=== PATIENT | female | born 1955 ===

== ENCOUNTER 2017-01-15 19:16 | Emergency (ER) | payer MEDICARE, OTHER ==
[~2017-01-15] VITALS: Ht 139.7 cm; Wt 64.1 kg
[~2017-01-15 19:16] MED LIST: BUPR300T51; CETI-188; CRESTOR20 M1 PO; GLU500 PO; LIP40; PARO30TA75; SIN10; hctz PO; lisinopril
[2017-01-15 19:21] VITALS: BP 134/84; PULSE 95; RESP 16; O2SAT 97
[2017-01-15 19:54] LABS: EOSINOPHILS % (AUTO) 10.4 % (0-5); MONOCYTES % (AUTO) 5.1 % (4-12); Mean Corpuscular Volume 82.4 fL (81-100); NEUTROPHILS % (AUTO) 51.9 % (40-74); Platelet Count 327 bil/L (150-400)
[2017-01-15 20:11] VITALS: BP 120/79; PULSE 89; RESP 13; O2SAT 96
[2017-01-15] MEDS ORDERED: ROSU20TA27 PO (20:13)
[2017-01-15] MEDS ORDERED: LISI10TA PO (20:13)
[2017-01-15] MEDS ORDERED: HYDR12.55 PO (20:13)
[2017-01-15] MEDS ORDERED: ASPI-973 PO (20:13)
[2017-01-15] MEDS ORDERED: PARO30TA4 PO (20:13)
[2017-01-15] MEDS ORDERED: METF500T4 PO (20:13)
--- NOTE | 2017-01-15 20:13 | DRSVH ---
PROCEDURE: X-RAY CHEST ONE VIEW, PORTABLE ([id number]) INDICATIONS: 61 year-old female with chest pain. TECHNIQUE: One view of the chest was acquired. COMPARISON: [facility], , CHEST 2 VIEW, 06/17/2013, 23:50. Formerly [facility], CR, CHEST 2VW, 06/14/2008, 14:12. Formerly [facility], , CHEST 1VW (PORTABLE), 01/21/2008, 12:51. FINDINGS: Surgical changes and devices: Patient is status post cholecystectomy. Lungs and pleura: No pleural effusions or pneumothorax. Lungs are clear. Mediastinum: Mediastinal contours appear normal. Heart size is normal. Bones and chest wall: No suspicious bony lesions. Overlying soft tissues appear unremarkable. IMPRESSION: No acute cardiopulmonary disease. Dictated by: Sánchez Tyson M.D. on 01/15/2017 at 20:06 Approved by: Sánchez Tyson M.D. on 01/15/2017 at 20:06
[2017-01-15 20:31] LABS: TROPONIN T < 0.010 ug/L (0.0-0.011)
--- NOTE | 2017-01-15 21:25 | ED.REPORT ---
HPI-Chest Pain 40 and Over Date of Service January 15, 2017 ED Provider: Mat Zavala MD A 61 year old female with a medical history including diabetes, hypertension, hyperlipidemia, GERD, TIA, and PE on daily ASA presents to the ED reporting intermittent midsternal shooting chest pain onset 1200 this afternoon, while making lunch. The pain radiates to her left shoulder and was preceded by a headache. The patient also reports shortness of breath and diaphoresis. She denies nausea, vomiting, extremity tenderness, extremity swelling, dizziness, or other symptoms. The patient has never had similar symptoms in the past. Nursing Notes Stated Complaint: CHEST PAIN Chief Complaint: Chest Pain Nursing Notes Reviewed: Yes Allergies: Coded Allergies: No Known Allergies (Verified , 05/24/06) Scheduled Aspirin (Aspirin) 81 Mg Tablet 81 MG PO DAILY Hydrochlorothiazide (Hydrochlorothiazide) 12.5 Mg Tablet 12.5 MG PO DAILY Lisinopril (Lisinopril) 10 Mg Tablet 10 MG PO DAILY Metformin (Metformin) 500 Mg Tablet 500 MG PO BID Paroxetine (Paroxetine) 30 Mg Tablet 30 MG PO HS Rosuvastatin Calcium (Rosuvastatin Calcium) 20 Mg Tablet 20 MG PO QPM General Time Seen by MD: 21:12 Chief Complaint Chest pain Hx Obtained From: Patient Arrived By: Walk-in Sudden in Onset?: No Onset Occurred: 9 - 12 hours ago Symptom Duration: Intermittent Location: : Substernal Quality: Painful (Shooting) Radiation: : Shoulder left Severity: Current: Moderate Severity: Maximum: Moderate Pertinent Negative: Relieved by nothing Context Related History: Reports: Diabetes mellitus, GERD, Hypertension, Pulmonary embolism Recent Healthcare: No recent doctor visit Similar Sx Previous: Yes Past Medical History Past Medical History Diabetes Hypertension Asthma GERD PE s/p hip operation Hyperlipidemia TIA Past Surgical History Hip surgeries x2 Cholecystectomy Hysterectomy Family History Mother at the age of 75. She had a CVA. Father had an TN and he at the age of 70. Smoking History Current Every Day Smoker Social History Drug Use: Denies drug use Other Social History: Good social support Ambulatory Status Independent Review of Systems Constitutional: Denies: Fever Respiratory: Reports: Shortness of breath, Denies: Non-productive cough Cardiovascular: Reports: Chest pain GI: Denies: Nausea, Vomiting Musculoskeletal: Reports: Joint pain (Left shoulder), Denies: Extremity pain, Extremity swelling Skin: Reports Diaphoresis Neurologic: Reports: Headache, Denies: Dizziness Complete sys rev & neg: except as marked. Physical Exam Initial Vital Signs Vital Signs (First) Date Time Temp Pulse Resp B/P Pulse Ox O2 Delivery O2 Flow Rate FiO2 01/15/17 19:21 37.3 95 16 134/84 97 Room Air Initial VS: Reviewed, Vital signs normal Head / Eyes: Atraumatic, Normocephalic Skin: Warm, Dry, No cyanosis Neurologic: Alert, Oriented, Nonfocal Psychiatric: Mood/affect normal, Behavior normal, Normal thought content General/Constitutional: Awake, Alert, No acute distress Thin Respiratory / Chest: Breath sounds NL, Breath sounds = bilat, No respiratory distress Cardiovascular: Heart rate NL, Regular rhythm, Heart sounds NL Neck: Supple, Full range of motion, No JVD Lower Extremity / Pelvis / MS: Inspection NL, No edema ENT: Airway patent, Mucous membranes moist Edentulous Interpretation & Diagnostics Lab Results Interpretation Result Diagram: 01/15/17193901/15/171939 Test 01/15/17 19:40 01/15/17 21:40 White Blood Count 8.9th/mm3 (3.8-10.1) Red Blood Count 5.44mil/mm3 (3.90-5.20) Hemoglobin 14.7g/dL (12.0-15.6) Hematocrit 44.8% (35.0-46.0) Mean Corpuscular Volume 82.4fL (81-100) Mean Corpuscular Hemoglobin 27.0pg (27.0-35.0) Mean Corpuscular Hemoglobin Concent 32.8% (32.0-37.0) Red Cell Distribution Width 15.4% (12.3-15.4) Platelet Count 327bil/L (150-400) Neutrophils (%) (Auto) 51.9% (40-74) Lymphocytes (%) (Auto) 31.4% (14-46) Monocytes (%) (Auto) 5.1% (4-12) Eosinophils (%) (Auto) 10.4% (0-5) Basophils (%) (Auto) 1.0% (0-3) D-Dimer 0.72mg/L FEU (<0.50) Sodium Level 138mEq/L (134-144) Potassium Level 4.5mEq/L (3.5-5.2) Chloride Level 100mEq/L (97-108) Carbon Dioxide Level 22mmol/L (18-29) Blood Urea Nitrogen 20mg/dL (8-27) Creatinine 0.80mg/dL (0.57-1.00) Estimat Glomerular Filtration Rate 104mL/min (>59) Glucose Level 109mg/dL (60-99) Calcium Level 9.7mg/dL (8.5-10.1) Magnesium Level 2.0mg/dL (1.6-2.6) Total Bilirubin 0.2mg/dL (0.0-1.2) Aspartate Amino Transf (AST/SGOT) 20U/L (0-50) Alanine Aminotransferase (ALT/SGPT) 17U/L (0-32) Alkaline Phosphatase 90U/L (25-165) Total Protein 7.8g/dL (6.4-8.4) Albumin 4.3g/dL (3.4-5.0) Hold Giang Top Tube Received (Received) Troponin T 0.010ug/L (0.0-0.011) Lab values outside NL range: no clinical significance. Lab Results Interpretation: D-dimer negative, troponin negative 2 ECG Interpretation ECG Interpretation: Sinus rhythm rate 96 Time: 19:28 Interpreted by: ED physician ECG Interpretation: Sinus rhythm rate 91 Low voltage, precordial leads Time: 21:38 Interpreted by: ED physician X-Ray Chest Interpretation Chest Xray Interpretation: IMPRESSION: No acute cardiopulmonary disease. Dictated by: Sánchez Tyson M.D. on 01/15/2017 at 20:06 View: Portable, 1 view Interpretation / Wet Read by: Interpret - Radiologist CT Chest Interpretation CONCLUSION: No evidence of pulmonary embolism or thoracic aortic dissection. Lungs are grossly clear. Report transmitted to the ED at 01/15/2017 - 11:40:06 PM PDT Study type: CT pulm angiogram Interpretation / Wet Read by: Interpret - Radiologist (Javier Granger M.D.) Re-Eval/Medical Decision Med Decision/Clinical Course 61-year-old female with pleuritic chest pain. Chest x-rays normal, EKG is normal 2, d-dimer is negative, and troponin is negative 2. She will be discharged home to follow up with her primary doctor. Doubt serious illness at this time. Time of Eval: 22:32 Patient Status: Condition improved Re-Evaluation/Progress Note: Discussed with patient lab results and plan for CT scan. She agrees with plan for care and all questions were addressed. Time of Eval: 23:52 Patient Status: Condition improved Re-Evaluation/Progress Note: Discussed with patient CT, x-ray, and lab results, diagnosis, and plan for discharge. Follow-up and return to the ER instructions given. Patient agrees with plan for care and all questions were addressed. Counseled Regarding: Diagnosis, Lab results, Need for follow-up, When/why to return to ED Discharge & Departure Primary Impression: Chest pain with low risk for cardiac etiology Disposition: Home Discharge Condition All VS Reviewed: Yes Condition: Improved Patient Instructions: Costochondritis (ED) Additional Instructions: Your exam today was reassuring. Your CT scan did not show evidence of a blood clot, pneumonia, or vessel disease. Your EKG, chest x-ray, and heart enzymes were normal. I find no evidence at this time of serious disease. Call your primary care provider tomorrow for a follow-up appointment. Return to the ER with any new or worsening symptoms. Referrals: Angi Oliver MD (PCP) Scribe Attestation Portions of this note were transcribed by Bertha De León. I, Dr. Zavala, personally performed the history, physical exam, and medical decision-making; I reviewed and confirmed the accuracy of the information in the transcribed note. Signed by: Dilia Irvin, 01/16/2017, 00:10 copies to: Angi Oliver MD, Howard L MD January 15, 2017 21:25 BERTHA DE LEÓN January 15, 2017 21:32
[2017-01-15 23:02] VITALS: BP 113/75; PULSE 92; RESP 22; O2SAT 96
[2017-01-16 00:10] VITALS: BP 110/74; PULSE 89; RESP 19; O2SAT 97
--- NOTE | 2017-01-16 10:26 | DRSVH ---
CORRECTED CC PROVIDER ON 01/29/17 PER [facility] PROCEDURE: CT ANGIO CHEST PULMONARY EMBOLISM ([id number]) INDICATIONS: chest pain, SOB, elev dimer, Hx PE TECHNIQUE: After the administration of intravenous contrast, 2 mm thick sections acquired from the pulmonary api stephie to the posterior costophrenic angles. 3-dimensional maximum intensity projection (MIP) coronal a nd sagittal reformats were then acquired through the thorax. For radiation dose reduction, the follo wing was used: automated exposure control, adjustment of mA and/or kV according to patient size. COMPARISON: [facility], CT, CHEST ANGIO-PE, 01/21/2008, 13:49. FINDINGS: Image quality: Excellent. Pulmonary arteries: Pulmonary arteries are normal in size, and demonstrate no intraluminal filling d efects to suggest central pulmonary embolism. Lungs and pleura: Lungs are clear. No pleural effusions or pneumothorax. Central and peripheral ai rways are patent. Mediastinum: Heart size is normal, without pericardial effusion. No mediastinal or hilar adenopathy . Thoracic aorta is normal in caliber and enhancement. Esophagus demonstrates mild distal esophagea l thickening with small hiatal hernia. Bones and chest wall: No suspicious bony lesions. Ribs and thoracic spine appear intact throughout. Thyroid gland is unremarkable. No axillary or supraclavicular adenopathy. Abdomen: Visualized upper abdominal solid organs appear normal in the early arterial phase of enhanc ement. IMPRESSION: 1. No visualized pulmonary embolism. 2. Lungs are clear. 3. Mild thickening of the distal esophagus, possibly related to esophagitis. However, it is noted guillermina t thickening was also present on the 01/21/08 exam. Dictated by: Corinne Roth M.D. on 01/16/2017 at 10:22 Approved by: Corinne Roth M.D. on 01/16/2017 at 10:24
== END 2017-01-16 00:11 | disposition home or self-care (01) ==
LOC: SED 19:16
DX: R07.2 Precordial pain (principal); R51 Headache; R06.02 Shortness of breath; R61 Generalized hyperhidrosis; J45.909 Unspecified asthma, uncomplicated; I10 Essential (primary) hypertension; E11.9 Type 2 diabetes mellitus without complications; K21.9 Gastro-esophageal reflux disease without esophagitis; E78.5 Hyperlipidemia, unspecified; F17.200 Nicotine dependence, unspecified, uncomplicated; Z86.73 Personal history of transient ischemic attack (TIA), and cerebral infarction without residual deficits; Z79.82 Long term (current) use of aspirin; Z79.84 Long term (current) use of oral hypoglycemic drugs
CPT/HCPCS: 36415; 71010; 71275; 80053; 83735; 84484; 85025; 85378; 93005; 99285; Q9967